=== PATIENT | male | born 1985 | race Caucasian/White ===

== ENCOUNTER 2021-02-26 14:16 | Emergency (ER) | payer OTHER ==
[~2021-02-26] VITALS: Ht 180.3 cm; Wt 75.0 kg
[2021-02-26 14:33] VITALS: BP 125/71
[2021-02-26] MEDS ORDERED: KEFLEX500 MG PO (15:42)
[2021-02-26] MEDS ORDERED: BACTRIM DS1 TAB PO (15:42)
== END 2021-02-26 15:59 | disposition home or self-care (01) ==
LOC: EDBD 14:16 → ED 14:16
DX: L02.414 Cutaneous abscess of left upper limb (principal); B95.62 Methicillin resistant Staphylococcus aureus infection as the cause of diseases classified elsewhere